=== PATIENT | male | born 1945 | race Caucasian/White ===

== ENCOUNTER 2016-08-12 23:01 | Observation (INO) | payer OTHER, MEDICARE ==
[2016-08-12] MEDS ORDERED: HYDROmorphONE/DILAUDID 1 MG/ML SYR IVP ONE (23:22)
[2016-08-12] MEDS ORDERED: NS 1,000 ML IV ONE (23:22)
[2016-08-12 23:29] LABS: COLOR YELLOW; LEUKOCYTE ESTERASE,URINE NEGATIVE (NEGATIVE); NITRITE,URINE NEGATIVE (NEGATIVE)
[2016-08-12] MEDS ORDERED: IOPAMIDOL (ISOVUE-300) 100 ML BTL ONE (23:29)
[2016-08-12 23:34] LABS: MUCUS TRACE /lpf (NONE-1+)
[2016-08-12 23:34] LABS: % IMMATURE GRANULYOCYTES 0.6 % (0.0-1.1); ABSOLUTE IMMATURE GRANULOCYTES 0.08 10^3/uL (0.00-0.10); ADD DIFF? NO; ADD MORPH? NO; ADD SCAN? NO; ATYPICAL LYMPHOCYTE FLAG 0 (0-99); FRAGMENT RBC FLAG 0 (0-99); HEMATOCRIT 49.7 % (40.0-51.0); HEMOGLOBIN 17.6 g/dL (13.7-17.5); LEFT SHIFT FLG 0 (0-99); LIPEMIA HEMOLYSIS FLAG 90 (0-99); MEAN CELL HEMOGLOBIN 32.1 pg (27.9-34.1); MEAN CELL HEMOGLOBIN CONCENTR. 35.4 g/dL (32.4-36.7); MEAN CELL VOLUME 90.7 fL (81.5-99.8); MEAN PLATELET VOLUME 10.4 fL (8.7-11.7); PLATELET CLUMPS FLAG 0 (0-99); PLATELET COUNT 165 10^3/uL (150-400); RED BLOOD CELL COUNT 5.48 10^6/uL (4.40-6.38); RED CELL DISTRIBUTION WIDTH 12.2 % (11.5-15.2)
[2016-08-13] MEDS ORDERED: ERTAPENEM 1 GM in NS 100 ML IV ONE (00:03)
[2016-08-13 00:07] LABS: ALANINE AMINOTRANSFERASE 49 IU/L (21-72); ALBUMIN 4.3 g/dL (3.5-5.0); ALKALINE PHOSPHATASE 76 IU/L (38-126); ANION GAP 12 mEq/L (8-16); ASPARTATE AMINOTRANSFERASE 41 IU/L (17-59); BILIRUBIN,TOTAL 1.2 mg/dL (0.1-1.4); BILIRUBIN-CONJUGATED 0.5 mg/dL (0.0-0.5); BILIRUBIN-UNCONJUGATED 0.7 mg/dL (0.0-1.1); CALCIUM 9.7 mg/dL (8.5-10.4); CARBON DIOXIDE 19 mEq/l (22-31); CHLORIDE 108 mEq/L (97-110); CREATININE 0.6 mg/dL (0.7-1.3); GLOMERULAR FILTRATION RATE > 60; GLUCOSE 124 mg/dL (70-100); POTASSIUM 4.7 mEq/L (3.5-5.2); SODIUM 139 mEq/L (134-144); TOTAL PROTEIN 7.6 g/dL (6.3-8.2)
--- NOTE | 2016-08-13 00:12 | EDPHY ---
H & P Stated Complaint: RLQ abd pain Time Seen by Provider: 08/12/16 23:13 HPI/ROS: Chief complaint: Right lower quadrant abdominal pain History of present illness: 71-year-old male presents to the emergency department for right lower quadrant abdominal pain. Patient reports the onset of symptoms over the last 3 days. They have been persistent. He denies precipitating factors. He denies alleviating factors. He denies other associated signs or symptoms including no fevers, no nausea, vomiting or diarrhea, no urinary symptoms. He has never had similar. Review of systems: A 10 point review of systems was obtained and other than described above was negative - Personal History Current Tetanus/Diphtheria Vaccine: Unsure Current Tetanus Diphtheria and Acellular Pertussis (TDAP): Unsure Tetanus Vaccine Date: unsure - Medical/Surgical History Hx Asthma: Yes Hx Chronic Respiratory Disease: No Hx Diabetes: No Hx Cardiac Disease: No Hx Renal Disease: No Hx Cirrhosis: No Hx Alcoholism: No Hx HIV/AIDS: No Hx Splenectomy or Spleen Trauma: No Other PMH: Septal repair. eye surgeries. Asthma, inguinal hernia repair, - Social History Smoking Status: Never smoked - Physical Exam Exam: General Appearance: Alert, nontoxic. Eyes: Pupils equal and round no pallor or injection. ENT, Mouth: Mucous membranes moist. Respiratory: There are no retractions, lungs are clear to auscultation. Cardiovascular: Regular rate and rhythm. Gastrointestinal: Bowel sounds are normal. Abdomen is soft and nondistended. There is tenderness in the right lower quadrant including at McBurney's point. Neurological: Alert and oriented x4. Strength and sensation intact and symmetrical. Skin: Warm and dry, no rashes. Musculoskeletal: Neck is supple non tender. Extremities are symmetrical, full range of motion. Psychiatric: Patient is oriented X 3, there is no agitation. Constitutional: Initial Vital Signs Temperature (C) 36.5 C 08/12/16 23:06 Heart Rate 78 08/12/16 23:06 Respiratory Rate 16 08/12/16 23:06 O2 Sat (%) 94 08/12/16 23:06 O2 Delivery Mode Room Air Allergies/Adverse Reactions: No Known Allergies Allergy (Verified 08/12/16 23:04) Home Medications: Medication Instructions Recorded Albuterol [Albuterol Neb deyvial] 2.5 mg IH QID #25 deyvial 10/11/10 Aspirin 81mg 10/11/10 Lisinopril 10/11/10 Pepcid 20 MG (OTC) 03/10/15 Singulair 03/10/15 Xalatan 0.005% (RX) 03/10/15 Simbrinza 1%-0.2% Eye Drops 08/12/16 Medical Decision Making ED Course/Re-evaluation: Patient seen under the supervision of my secondary supervising physician Dr. Guerra. Patient presents to the emergency department for abdominal pain. Ultimately he appears to have an appendicitis. He is started on Invanz. On- call surgery, Dr.Kyle Lima is consulted and will admit this patient for further evaluation and care. The plan has been discussed with the patient who voiced understanding and agreement with it. Differential Diagnosis: Included but not limited to appendicitis, colitis, diverticulitis, urinary tract disease - Data Points Laboratory Results: Laboratory Results 08/12/16 23:25 08/12/16 08/12/16 08/12/16 23:32 23:25 23:25 WBC 13.42 10^3/uL H 10^3/uL (3.80-9.50) RBC 5.48 10^6/uL 10^6/uL (4.40-6.38) Hgb 17.6 g/dL H g/dL (13.7-17.5) POC Hgb 17.7 gm/dL H gm/dL (14.5-17.3) Hct 49.7 % % (40.0-51.0) POC Hct 52 % H % (42.8-50.6) MCV 90.7 fL fL (81.5-99.8) MCH 32.1 pg pg (27.9-34.1) MCHC 35.4 g/dL g/dL (32.4-36.7) RDW 12.2 % % (11.5-15.2) Plt Count 165 10^3/uL 10^3/uL (150-400) MPV 10.4 fL fL (8.7-11.7) Neut % (Auto) 72.0 % % (39.3-74.2) Lymph % (Auto) 18.1 % % (15.0-45.0) [place] % (Auto) 7.9 % % (4.5-13.0) Eos % (Auto) 0.7 % % (0.6-7.6) Baso % (Auto) 0.7 % % (0.3-1.7) Nucleat RBC Rel Count 0.0 % % (0.0-0.2) Absolute Neuts (auto) 9.67 10^3/uL H 10^3/uL (1.70-6.50) Absolute Lymphs (auto) 2.43 10^3/uL 10^3/uL (1.00-3.00) Absolute Monos (auto) 1.06 10^3/uL H 10^3/uL (0.30-0.80) Absolute Eos (auto) 0.09 10^3/uL 10^3/uL (0.03-0.40) Absolute Basos (auto) 0.09 10^3/uL 10^3/uL (0.02-0.10) Absolute Nucleated RBC 0.00 10^3/uL 10^3/uL (0-0.01) Immature Gran % 0.6 % % (0.0-1.1) Immature Gran # 0.08 10^3/uL 10^3/uL (0.00-0.10) POC Sodium 140 mEq/L mEq/L (134-144) Sodium Pending POC Potassium 4.2 mEq/L mEq/L (3.3-5.0) Potassium Pending POC Chloride 106 mEq/L mEq/L (96-108) Chloride Pending Carbon Dioxide Pending Anion Gap Pending POC BUN 22 mg/dL mg/dL (7-23) BUN Pending Creatinine Pending POC Creatinine 0.6 mg/dL L mg/dL (0.8-1.5) Estimated GFR Pending Glucose Pending POC Glucose 127 mg/dL H mg/dL (70-100) Calcium Pending Total Bilirubin Pending Conjugated Bilirubin Pending Unconjugated Bilirubin Pending AST Pending ALT Pending Alkaline Phosphatase Pending Total Protein Pending Albumin Pending Lipase Pending Urine Color Urine Appearance Urine pH Ur Specific [place] Urine Protein Urine Ketones Urine Blood Urine Nitrate Urine Bilirubin Urine Urobilinogen Ur Leukocyte Esterase Urine RBC Urine WBC Ur Epithelial Cells Urine Mucus Urine Glucose 08/12/16 23:10 WBC RBC Hgb POC Hgb Hct POC Hct MCV MCH MCHC RDW Plt Count MPV Neut % (Auto) Lymph % (Auto) [place] % (Auto) Eos % (Auto) Baso % (Auto) Nucleat RBC Rel Count Absolute Neuts (auto) Absolute Lymphs (auto) Absolute Monos (auto) Absolute Eos (auto) Absolute Basos (auto) Absolute Nucleated RBC Immature Gran % Immature Gran # POC Sodium Sodium POC Potassium Potassium POC Chloride Chloride Carbon Dioxide Anion Gap POC BUN BUN Creatinine POC Creatinine Estimated GFR Glucose POC Glucose Calcium Total Bilirubin Conjugated Bilirubin Unconjugated Bilirubin AST ALT Alkaline Phosphatase Total Protein Albumin Lipase Urine Color YELLOW Urine Appearance CLEAR Urine pH 5.0 (5.0-7.5) Ur Specific [place] 1.023 (1.002-1.030) Urine Protein NEGATIVE (NEGATIVE) Urine Ketones NEGATIVE (NEGATIVE) Urine Blood 1+ H (NEGATIVE) Urine Nitrate NEGATIVE (NEGATIVE) Urine Bilirubin NEGATIVE (NEGATIVE) Urine Urobilinogen NEGATIVE EU EU (0.2-1.0) Ur Leukocyte Esterase NEGATIVE (NEGATIVE) Urine RBC 5-10 /hpf H /hpf (0-3) Urine WBC 1-3 /hpf /hpf (0-3) Ur Epithelial Cells NONE SEEN /lpf /lpf (NONE-1+) Urine Mucus TRACE /lpf /lpf (NONE-1+) Urine Glucose NEGATIVE (NEGATIVE) Medications Given: Discontinued Medications Hydromorphone HCl (Dilaudid) 1 mg IVP EDNOW ONE Stop: 08/12/16 23:23 Last Admin: 08/12/16 23:35 Dose: 1 mg Sodium Chloride (Ns) 1,000 mls @ 0 mls/hr IV ONCE ONE PRN Reason: Wide Open Stop: 08/12/16 23:23 Last Admin: 08/12/16 23:35 Dose: 1,000 mls Point of Care Test Results: 08/12/16 23:32 POC Sodium 140 POC Potassium 4.2 POC Chloride 106 POC BUN 22 POC Creatinine 0.6 L POC Glucose 127 H Departure - Departure Disposition: [facility] Inpatient Acute Clinical Impression: Acute appendicitis Qualifiers: Acute appendicitis type: unspecified acute appendicitis type Qualified Code(s) : K35.80 - Unspecified acute appendicitis Condition: Good Referrals: Al Krishna MD [Primary Care Provider] - As per Instructions
[2016-08-13] MEDS ORDERED: BUPIVACAINE/EPI 0.25% 30 ML SDV ONE (00:42)
[2016-08-13] MEDS ORDERED: fentaNYL 100 MCG/2 ML INJ ONE (00:46)
[2016-08-13] MEDS ORDERED: PROPOFOL 200 MG/20 ML VIAL ONE (00:46)
[2016-08-13] MEDS ORDERED: ROCURONIUM 100 MG/10 ML VIAL ONE (00:48)
[2016-08-13] MEDS ORDERED: MIDAZOLAM 2 MG/2 ML VIAL ONE (01:02)
--- NOTE | 2016-08-13 01:08 | GHP ---
[f rep st] PREOP HISTORY AND PHYSICAL DATE OF ADMISSION: 08/13/2016 CHIEF COMPLAINT: Abdominal pain. HISTORY OF PRESENT ILLNESS: This is an otherwise healthy 71-year-old male, who presents to the [facility] department with an approximate 48 hour history of worsening abdominal pain. He states that th e pain never really has been that bad. It has been sort of this nagging, vague abdominal pain which has sort of relocated to his right lower quadrant. It persisted and worsened today which prompted his presentation here at the behest of his son who is also a physician. He denies having any nausea or vomiting. He states that the pain is a vague right lower quadrant pain, 6/10 at worse intensity without radiation. He denies having any fevers or chills. PAST MEDICAL HISTORY: Significant for nausea and hyperlipidemia. PAST SURGICAL HISTORY: Right inguinal hernia repair performed open about 50 years ago. ALLERGIES: None. CURRENT MEDICATIONS: Include an inhaler and a baby aspirin and some fish oil. PHYSICAL EXAM: VITAL SIGNS: Temperature 36.5, blood pressure 135/66. His heart rate is 78 and he is 94% on room air. GENERAL: He is alert and oriented, in no acute distress. CV: He has a regula r rate and rhythm without any murmurs. LUNGS: Clear to auscultation bilaterally. ABDOMEN: Rotund . Well-healed right lower quadrant scar consistent with previous inguinal hernia repair, no other s car. He is moderately tender to palpation in the right lower quadrant. LABORATORY DATA: Leukocytosis to 13,000 with left shift. Chemistries are unremarkable. CT scan shows a dilated, fluid-filled appendix with stranding and an associated appendicolith in the right lower quadrant consistent with nonperforated appendicitis. ASSESSMENT AND PLAN: 71-year-old male with acute appendicitis. I discussed the risks, benefits, and alternatives to operating, and the patient wishes to proceed. We will plan to keep him n.p.o. IV antibiotics and plan for operation as time permits. /[id number]/MODL
[2016-08-13] MEDS ORDERED: SUGAMMADEX SODIUM 200 MG/2 ML VIAL IVP ONE (01:49)
[2016-08-13] MEDS ORDERED: ONDANSETRON 4 MG/2 ML VIAL ONE (01:49)
[2016-08-13] MEDS ORDERED: RANITIDINE 50 MG/2 ML VIAL ONE (01:49)
[2016-08-13] MEDS ORDERED: DEXAMETHASONE 4 MG/ML VIAL ONE (01:49)
[2016-08-13] MEDS ORDERED: KETOROLAC 30 MG/1 ML SDV ONE (01:50)
[2016-08-13] MEDS ORDERED: HYDROmorphONE/DILAUDID 1 MG/ML SYR IVP PRN (02:04)
[2016-08-13] MEDS ORDERED: HYDROCODONE/APAP 5/325 TAB PO PRN (02:04)
[2016-08-13] MEDS ORDERED: ONDANSETRON 4 MG/2 ML VIAL IVP PRN (02:04)
--- NOTE | 2016-08-13 02:08 | POSTOPPROG ---
Post Op Note Date of Operation: 08/13/16 Surgeon: Bernard Lima Anesthesiologist: Deb Anesthesia: GET(General Endotracheal) Pre-op Diagnosis: appendicitis Post-op Diagnosis: same Procedure: lap appy Findings: acute, non perforated Inf/Abcess present in the surg proc area at time of surgery?: No Depth: Superfical (Skin SQ) EBL: Minimal Specimen(s): appendix
[2016-08-13] MEDS ORDERED: D5W 1/2 NS W/ 20 KCl/L 1,000 ML IV SCH (02:15)
--- NOTE | 2016-08-13 03:42 | GOP ---
[f rep st] OPERATIVE REPORT DATE OF OPERATION: 08/13/2016 SURGEON: Bernard Lima MD LINING CASER: None. ANESTHESIA: General endotracheal. ANESTHESIOLOGIST: Dr. Boyd. PREOPERATIVE DIAGNOSIS: Appendicitis. POSTOPERATIVE DIAGNOSIS: Appendicitis. PROCEDURE PERFORMED: Laparoscopic appendectomy. FINDINGS: Acute, indurated, nonperforated appendicitis. SPECIMENS: Appendix. ESTIMATED BLOOD LOSS: 5 cc. DESCRIPTION OF PROCEDURE: The patient was greeted in the preoperative suite. Once again, risks, be nefits, and alternatives were discussed and consent was signed. He was then brought back to the ope rative suite, placed on the OR table in a supine position. After all anesthesia machines, including SCDs, were on and functioning, World Health Organization time-out was performed. General endotrach eal anesthesia was then induced without incident. Antibiotics were given on-call to the operating r oom. His abdomen was then widely prepped and draped in typical sterile fashion. I entered the abdo men via an inferior umbilical vertical incision through which I inserted the Veress needle and insuf flated to 15 mmHg. Once this was done, I inserted a 12 mm Visiport through that site. I inspected the organs. I placed 2 additional 5 mm ports, one in the left lower, one in the right upper quadran t, both under direct visualization. Once this was done, I identified the appendix which was retroce yelena in nature by tracing the taeniae inferiorly. I did have to mobilize the distal portion of the c ecum to properly identify it. After I identified it, I used the Harmonic Scalpel to successfully ta ke the indurated mesoappendix all the way to the base of the cecum, and then I amputated the appendi x at its base using a single fire Endo-DEBRA blue load. The specimen was then removed in an EndoCatch bag. The right lower quadrant was inspected and noted to be hemostatic and the staple line clean, dry, and intact. He was irrigated with warm normal saline. Local anesthesia was then instilled in all port sites. My umbilical site was then closed with a Cortes-Jose Ramon fascial closure device, no ting excellent fascial reapproximation at the umbilical site. I then desufflated the abdomen and cl osed the skin with running 4-0 Monocryl, over which Dermabond was placed. The patient tolerated the procedure well, was extubated in the operative suite, and taken to the PACU in satisfactory conditi on. COUNTS: All counts were reported as correct x2. /[id number]/MODL
--- NOTE | 2016-08-13 07:51 | SOAPPROG ---
SOAP Progress Note Assessment/Plan: Assessment/Plan: - POD#1 s/p lappy, non perforated - Doing well, pain is controlled. Will ADAT, try PO narcotics and plan for dc later today. Precautions discussed. Fu with me in 10-14 days 08/13/16 07:50 Subjective: Feels great Objective: Vital Signs Temp Pulse Resp BP Pulse Ox 36.5 C 70 18 122/57 H 96 08/13/16 04:20 08/13/16 04:20 08/13/16 04:20 08/13/16 04:20 08/13/16 04:20 08/12/16 08/13/16 08/14/16 05:59 05:59 05:59 Intake Total 2600 Output Total 510 Balance 2090 ICD10 Worksheet Patient Problems: Problems Problem Status Onset Acute appendicitis Acute
[2016-08-13 07:58] VITALS: BP 110/67; PULSE 64; RESP 16; TEMP 97.6; O2SAT 95
== END 2016-08-13 12:49 | disposition home or self-care (01) ==
LOC: INTOOBSV 08-13 00:09 → F2W 08-13 02:47
PROVIDERS: ADMIT Surgery; ATTEND Surgery
PROC: 0DTJ4ZZ Resection of Appendix, Percutaneous Endoscopic Approach (ICD-10-PCS; principal; 2016-08-13 00:09)
DX: K35.80 Unspecified acute appendicitis (principal); J45.909 Unspecified asthma, uncomplicated; Z79.51 Long term (current) use of inhaled steroids
CPT/HCPCS: 44970; 74177; 88304; G0378; J1100; J1170; J1335; J1885; J2250; J2405; J2704; J3010; Q9967; 82947-QW; 96365; J2780

== ENCOUNTER 2016-12-14 21:34 | Emergency (ER) | payer OTHER, MEDICARE ==
[2016-12-14 21:41] VITALS: TEMP 97.9
--- NOTE | 2016-12-14 21:56 | CPEKG ---
Heart Rate: 99 RR Interval: 606 P-R Interval: 208 QRSD Interval: 96 QT Interval: 324 QTC Interval: 416 P [place]: 65 QRS [place]: 49 T Wave [place]: 96 EKG Severity - ABNORMAL ECG - EKG Impression: SINUS RHYTHM EKG Impression: VENTRICULAR BIGEMINY EKG Impression: ABNRM R PROG, CONSIDER ASMI OR LEAD PLACEMENT Electronically Signed By: Sanchez Luna 14-Dec-2016 23:03:41
[2016-12-14 22:02] LABS: % IMMATURE GRANULYOCYTES 0.4 % (0.0-1.1); ABSOLUTE IMMATURE GRANULOCYTES 0.04 10^3/uL (0.00-0.10); ADD DIFF? NO; ADD MORPH? NO; ADD SCAN? NO; ATYPICAL LYMPHOCYTE FLAG 10 (0-99); FRAGMENT RBC FLAG 0 (0-99); HEMATOCRIT 46.8 % (40.0-51.0); HEMOGLOBIN 16.2 g/dL (13.7-17.5); LEFT SHIFT FLG 0 (0-99); LIPEMIA HEMOLYSIS FLAG 90 (0-99); MEAN CELL HEMOGLOBIN 32.2 pg (27.9-34.1); MEAN CELL HEMOGLOBIN CONCENTR. 34.6 g/dL (32.4-36.7); MEAN PLATELET VOLUME 10.6 fL (8.7-11.7); PLATELET CLUMPS FLAG 50 (0-99); PLATELET COUNT 158 10^3/uL (150-400); RED BLOOD CELL COUNT 5.03 10^6/uL (4.40-6.38); RED CELL DISTRIBUTION WIDTH 12.3 % (11.5-15.2)
--- NOTE | 2016-12-14 22:24 | EDPHY ---
H & P Stated Complaint: bradycardia, son thinks r/o Mobitz II block Time Seen by Provider: 12/14/16 21:51 HPI/ROS: Chief Complaint: Bradycardia HPI: 71-year-old male with a history of hypertension, glaucoma, sleep apnea is presenting with bradycardia. Patient's states that his son checked his heart rate earlier and it was 38. Patient had a physical exam a week ago was noted to be bradycardic at 48 but otherwise was normal. Patient states that he actually feels in his normal state health. He is walking 2 miles a day which has not changed in the last several months. He is feeling increasingly tired the end has been sleeping 11 hours a night attributes this to his sleep apnea. This is not new for him either. Has not had any chest pain or shortness of breath. He has not had any swelling. No fevers or chills. No cough. No changes to his medications. He is not on any medications that would a slow his heart rate. Right now states he feels normal. ROS: 10 point Review of Systems is negative except as noted in the HPI. PMH: Glaucoma, hypertension, the asthma Medications: Lisinopril, Singulair, aspirin, Pepcid Allergies: No known drug allergies Social History: No smoking, no alcohol, no recreational drug use Family History: non-contributory Physical Exam: Gen: Awake, Alert, No Distress HEENT: Nose: no rhinorrhea Eyes: PERRLA, EOMI Mouth: Moist mucosa Neck: Supple, no JVD Chest: nontender, lungs clear to auscultation Heart: S1, S2 normal, no murmur Abd: Soft, non-tender, no guarding Back: no CVA tenderness, no midline tenderness Ext: no edema, non-tender Skin: no rash Neuro: CN II-XII intact, Sensation grossly intact, Strength 5/5 in bilateral upper and lower extremities - Personal History Current Tetanus/Diphtheria Vaccine: Yes Tetanus Vaccine Date: unsure - Medical/Surgical History Hx Asthma: Yes Hx Chronic Respiratory Disease: No Hx Diabetes: No Hx Cardiac Disease: No Hx Renal Disease: No Hx Cirrhosis: No Hx Alcoholism: No Hx HIV/AIDS: No Hx Splenectomy or Spleen Trauma: No Other PMH: PSHx: nasal septal repair, eye surgeries, inguinal hernia repair. PMHx: asthma, sleep apnea, glaucoma, htn - Social History Smoking Status: Never smoked Constitutional: Initial Vital Signs Temperature (C) 36.6 C 12/14/16 21:37 Heart Rate 39 L 12/14/16 21:37 Respiratory Rate 16 12/14/16 21:37 Blood Pressure 150/47 H 12/14/16 21:37 O2 Sat (%) 93 12/14/16 21:37 O2 Delivery Mode Room Air O2 (L/minute) 2 Allergies/Adverse Reactions: No Known Allergies Allergy (Verified 08/12/16 23:04) Home Medications: Medication Instructions Recorded Albuterol [Proventil Neb] 3 ml IH QID PRN 08/13/16 Aspirin [Aspirin 81mg (*)] 81 mg PO HS 08/13/16 Brinzolamide/Brimonidine Tart 1 drop EACHEYE BID 08/13/16 [Simbrinza 1%-0.2% Eye Drops] Famotidine [Pepcid 20 MG (*)] 20 mg PO HS 08/13/16 Latanoprost 0.005% [Xalatan 0.005% 1 drops EACHEYE HS 08/13/16 (*)] Lisinopril [Zestril 20 mg (*)] 20 mg PO DAILY 08/13/16 Montelukast Sodium [Singulair 10 10 mg PO DAILY 08/13/16 mg (*)] Medical Decision Making - Diagnostics EKG Interpretation: ECG time 9:47 p.m. sinus rhythm with ventricular bigeminy. No acute ST or T- wave changes. Mild prolonged p.r.. Imaging Results: Imaging Impressions Chest X-Ray 12/14/16 21:52 Impression: Negative frontal chest radiograph. ED Course/Re-evaluation: 71-year-old male who actually feels normal with son noticed that his heart rate was low. Patient is in bigeminy with a rate of 70s. His labs are entirely normal. Chest x-ray is normal. He is currently without complaint or symptom. Given his lack of symptoms. He is ambulating without any difficulty. He has not had any syncope or presyncopal type of symptoms. I have talked at length with he and his son who is also a physician. They are comfortable with plan of discharge to home with outpatient follow-up with Cardiology. He will certainly return immediately for worsening symptoms such as chest pain, fainting, lightheadedness, or any other concerns. Given the fact that the patient went for a 2 mi walk today and a 2 mi walk yesterday I am comfortable sending him home with outpatient follow-up. - Data Points Laboratory Results: Laboratory Results 12/14/16 21:51 12/14/16 21:51 12/14/16 12/14/16 21:51 21:51 WBC 10.00 10^3/uL H 10^3/uL (3.80-9.50) RBC 5.03 10^6/uL 10^6/uL (4.40-6.38) Hgb 16.2 g/dL g/dL (13.7-17.5) Hct 46.8 % % (40.0-51.0) MCV 93.0 fL fL (81.5-99.8) MCH 32.2 pg pg (27.9-34.1) MCHC 34.6 g/dL g/dL (32.4-36.7) RDW 12.3 % % (11.5-15.2) Plt Count 158 10^3/uL 10^3/uL (150-400) MPV 10.6 fL fL (8.7-11.7) Neut % (Auto) 46.1 % % (39.3-74.2) Lymph % (Auto) 38.5 % % (15.0-45.0) [place] % (Auto) 12.2 % % (4.5-13.0) Eos % (Auto) 2.1 % % (0.6-7.6) Baso % (Auto) 0.7 % % (0.3-1.7) Nucleat RBC Rel Count 0.0 % % (0.0-0.2) Absolute Neuts (auto) 4.61 10^3/uL 10^3/uL (1.70-6.50) Absolute Lymphs (auto) 3.85 10^3/uL H 10^3/uL (1.00-3.00) Absolute Monos (auto) 1.22 10^3/uL H 10^3/uL (0.30-0.80) Absolute Eos (auto) 0.21 10^3/uL 10^3/uL (0.03-0.40) Absolute Basos (auto) 0.07 10^3/uL 10^3/uL (0.02-0.10) Absolute Nucleated RBC 0.00 10^3/uL 10^3/uL (0-0.01) Immature Gran % 0.4 % % (0.0-1.1) Immature Gran # 0.04 10^3/uL 10^3/uL (0.00-0.10) Sodium 138 mEq/L mEq/L (134-144) Potassium 4.3 mEq/L mEq/L (3.5-5.2) Chloride 106 mEq/L mEq/L (97-110) Carbon Dioxide 20 mEq/l L mEq/l (22-31) Anion Gap 12 mEq/L mEq/L (8-16) BUN 24 mg/dL H mg/dL (7-23) Creatinine 0.8 mg/dL mg/dL (0.7-1.3) Estimated GFR > 60 Glucose 105 mg/dL H mg/dL (70-100) Calcium 9.9 mg/dL mg/dL (8.5-10.4) Magnesium 1.8 mg/dL mg/dL (1.6-2.3) Troponin I < 0.012 ng/mL ng/mL (0.000-0.034) Departure - Departure Disposition: Home, Routine, Self-Care Clinical Impression: Ventricular bigeminy Condition: Good Instructions: Premature Ventricular Contractions (ED) Additional Instructions: Follow up with Cardiology, call tomorrow for next available appointment. Return to the emergency department for lightheadedness, worsening fatigue, falls , chest pain, shortness of breath, or any other concerns. Referrals: Al Krishna MD [Primary Care Provider] - As per Instructions Tony Luong MD [Medical Doctor] - As per Instructions
[2016-12-14 22:29] LABS: ANION GAP 12 mEq/L (8-16); CALCIUM 9.9 mg/dL (8.5-10.4); CARBON DIOXIDE 20 mEq/l (22-31); CHLORIDE 106 mEq/L (97-110); CREATININE 0.8 mg/dL (0.7-1.3); GLOMERULAR FILTRATION RATE > 60; GLUCOSE 105 mg/dL (70-100); POTASSIUM 4.3 mEq/L (3.5-5.2); SODIUM 138 mEq/L (134-144)
[2016-12-14 22:44] LABS: MAGNESIUM 1.8 mg/dL (1.6-2.3)
[2016-12-14 22:55] LABS: TROPONIN I < 0.012 ng/mL (0.000-0.034)
[2016-12-14 23:57] VITALS: BP 117/71; PULSE 60; RESP 18; O2SAT 97
== END 2016-12-14 23:56 | disposition home or self-care (01) ==
DX: I49.3 Ventricular premature depolarization (principal); I10 Essential (primary) hypertension; J45.909 Unspecified asthma, uncomplicated; Z79.82 Long term (current) use of aspirin

== ENCOUNTER → 2016-12-17 | Outpatient (CLI) | payer OTHER, MEDICARE | LOC: BHFA 10:45 | PROVIDERS: ATTEND Internal Medicine Cardiovascular Disease | DX: I49.3 Ventricular premature depolarization (principal); R00.1 Bradycardia, unspecified; R00.2 Palpitations; R06.00 Dyspnea, unspecified; R42 Dizziness and giddiness ==

== ENCOUNTER → 2016-12-23 | Outpatient (CLI) | payer OTHER, MEDICARE ==
[~2016-12-23] MED LIST: REGADENOSON 0.4 MG/5 ML SYR IVP ONE
--- NOTE | 2016-12-23 15:06 | CPR ---
[f rep st] NONINVASIVE CARDIAC PROCEDURE REPORT PROCEDURE: Nuclear stress test. DIAGNOSES: Shortness of breath. Premature ventricular contractions. The patient is in excellent state of mind and alert. I went over with him the risks of the stress te st, and he wanted to proceed. He is not an active walker by any means and takes very short steps. He is deconditioned and is 70 po unds overweight. He was, however, wanting to try an exercise stress test, so we proceeded. PROTOCOL: The patient could not go at the rate of stage I of the standard Enrique protocol. At the mo dified Enrique protocol, he could not keep up. So, within 30 seconds of starting the treadmill, he laura t to a manual performance. He was walking at 1.5 miles per hour, and we increased the grade, but we could not increase the speed of the treadmill because he could not tolerate that. He walked for over 5-1/2 minutes. He had no chest pain. He had no PVCs with exercise. He had PVCs and bigeminy after exercise. He had asymptomatic nonsustained ventricular tachycardia with one 4-ritchie t run of ventricular tachycardia. He had multiple triplets. Again, he had no symptoms at the time o f these arrhythmias, which occurred only in the postexercise time. What we did for a protocol of exercise was, as he could tolerate it, we increased the grade, but, as mentioned above, we kept him at a very slow pace. It was hard to keep him towards the front of the t readmill, and he had significant dyspnea with not too much exertion, but he wanted to keep going. He had no chest pain with exercise, no lightheadedness, no neurologic symptoms. He just had dyspnea. We increased the grade until we were up at 17%, and he reached 85% of maximum predicted heart rate. As soon as he had his injection, within 20 seconds we decreased the grade, to make it more comfortabl e for him, down to 7%. We then took away the grade and slowed the treadmill down to 1 mile an hour, all in the first 2 minutes post injection. We then had him walk on a flat level treadmill at 0.7 mil es an hour for 2 more minutes to cool down. His breathing became much better. He had the nonsustain ed ventricular tachycardia and the resumption of PVCs. We then stopped the treadmill, and he sat nishi n at the end of the treadmill on a stool, and we engaged in conversation for the next 5-7 minutes, wa tching for any more significant arrhythmias, and we did not see any. He tolerated this procedure daquan y well. His EKG at baseline was abnormal, with an intraventricular conduction delay, nonspecific ST- T changes, and many PVCs. He had no diagnostic EKG changes with exercise. The [place]mel Treadmill Score does not apply with such a manual exercise program. CONCLUSIONS: 1. Very poor exercise tolerance. 2. Massive obesity. 3. Significant dyspnea with very little exertion. 4. There is no EKG or clinical evidence of ischemia in the form of chest pain with maximal exercise capacity. 5. Nuclear images pending. 6. There was no chest pain, lightheadedness, palpitations with his exercise test. All his questions have been answered. We have come up with a terrific exercise program for him, and I think he will do a great job and will adhere to doing that. I think he is very motivated. /[id number]/MODL
== END ==
LOC: FIMAGING 12:29
PROVIDERS: ATTEND Internal Medicine Cardiovascular Disease
PROC: C22G1ZZ Tomographic (Tomo) Nuclear Medicine Imaging of Myocardium using Technetium 99m (Tc-99m) (ICD-10-PCS; principal; 2016-12-23)
DX: I10 Essential (primary) hypertension (principal)
CPT/HCPCS: 78452; A9500; J2785

== ENCOUNTER 2016-12-29 09:42 | Day surgery (SDC) | payer OTHER, MEDICARE ==
[2016-12-29] MEDS ORDERED: diphenhydrAMINE 25 MG CAP PO ONE ×2 (09:47→10:12)
[2016-12-29] MEDS ORDERED: ASPIRIN EC 325 MG TAB PO ONE ×2 (09:47→10:12)
[2016-12-29] MEDS ORDERED: FAMOTIDINE 20 MG TAB PO ONE (09:47)
[2016-12-29] MEDS ORDERED: DIAZEPAM 5 MG TAB PO ONE (09:47)
[2016-12-29] MEDS ORDERED: NS 1,000 ML IV ONE (09:47)
[2016-12-29] MEDS ORDERED: DIAZEPAM 5 MG TAB ONE (10:12)
[2016-12-29] MEDS ORDERED: FAMOTIDINE 20 MG TAB ONE (10:12)
--- NOTE | 2016-12-29 10:15 | CPEKG ---
Heart Rate: 89 RR Interval: 674 P-R Interval: 236 QRSD Interval: 92 QT Interval: 261 QTC Interval: 318 P [place]: 66 QRS [place]: 48 T Wave [place]: 217 EKG Severity - ABNORMAL ECG - EKG Impression: SINUS RHYTHM EKG Impression: VENTRICULAR BIGEMINY EKG Impression: FIRST DEGREE AV BLOCK Electronically Signed By: Lm Ortiz 29-Dec-2016 10:35:52
[2016-12-29 10:32] LABS: % IMMATURE GRANULYOCYTES 0.3 % (0.0-1.1); ABSOLUTE IMMATURE GRANULOCYTES 0.02 10^3/uL (0.00-0.10); ADD DIFF? NO; ADD MORPH? NO; ADD SCAN? NO; ATYPICAL LYMPHOCYTE FLAG 0 (0-99); FRAGMENT RBC FLAG 0 (0-99); HEMATOCRIT 45.5 % (40.0-51.0); HEMOGLOBIN 15.6 g/dL (13.7-17.5); LEFT SHIFT FLG 0 (0-99); LIPEMIA HEMOLYSIS FLAG 90 (0-99); MEAN CELL HEMOGLOBIN 32.2 pg (27.9-34.1); MEAN CELL HEMOGLOBIN CONCENTR. 34.3 g/dL (32.4-36.7); MEAN CELL VOLUME 93.8 fL (81.5-99.8); MEAN PLATELET VOLUME 10.7 fL (8.7-11.7); PLATELET CLUMPS FLAG 30 (0-99); PLATELET COUNT 149 10^3/uL (150-400); RED BLOOD CELL COUNT 4.85 10^6/uL (4.40-6.38); RED CELL DISTRIBUTION WIDTH 12.6 % (11.5-15.2)
[2016-12-29 10:42] LABS: INR 1.13 (0.83-1.16); PROTIME(PATIENT) 14.4 SEC (12.0-15.0)
[2016-12-29 10:58] LABS: ANION GAP 12 mEq/L (8-16); CALCIUM 9.5 mg/dL (8.5-10.4); CARBON DIOXIDE 18 mEq/l (22-31); CHLORIDE 109 mEq/L (97-110); CHOLESTEROL 124 mg/dL (140-220); CHOLESTEROL/HDL RATIO 4.96 RATIO (1.00-4.97); CREATININE 0.7 mg/dL (0.7-1.3); GLOMERULAR FILTRATION RATE > 60; GLUCOSE 93 mg/dL (70-100); HIGH DENSITY LIPOPROTEIN 25 mg/dL (40-65); LDL/HDL RATIO 2.96 RATIO (1.00-3.64); LOW DENSITY LIPOPROTEIN 74 mg/dL (80-100); MAGNESIUM 1.8 mg/dL (1.6-2.3); NON-HIGH DENSITY LIPOPROTEIN 99 mg/dL (90-129); POTASSIUM 4.3 mEq/L (3.5-5.2); SODIUM 139 mEq/L (134-144); TRIGLYCERIDE 129 mg/dL (40-150); VERY LOW DENSITY LIPOPROTEINS 25 mg/dL (8-25)
[2016-12-29] MEDS ORDERED: VERAPAMIL 5 MG/2 ML VIAL ONE (12:40)
[2016-12-29] MEDS ORDERED: MIDAZOLAM 2 MG/2 ML VIAL ONE (12:40)
[2016-12-29] MEDS ORDERED: fentaNYL 100 MCG/2 ML INJ ONE (12:40)
[2016-12-29] MEDS ORDERED: HEPARIN 10,000 UNIT/10 ML MDV ONE (12:40)
[2016-12-29] MEDS ORDERED: LIDOCAINE 1% 300 MG/30 ML SDV ONE (12:40)
[2016-12-29] MEDS ORDERED: IOPAMIDOL (ISOVUE-370) 150 ML BTL IV ONE (12:41)
--- NOTE | 2016-12-29 12:54 | PDHPUP ---
History & Physical Update H&P update statement: This history and physical update is based on an assessment of the patient which was completed after admission or registration (within 24 hours), but prior to the surgery/procedure. H&P update: H&P reviewed & patient examined, no change in patient's condition since H&P completed
--- NOTE | 2016-12-29 12:55 | PDPROPOC ---
Sedation Plan of Care Sedation Plan of Care: vital signs stable, mental status noted, patient educated of risks, benefits, alternatives, patient can tolerate sedation ASA Classification: ASA 1 Planned drugs: fentanyl, midazolam Mallampati Score: Class 3 Mallampati Reference Image: Patient passed 3-3-2 rule?: Yes
[2016-12-29] MEDS ORDERED: ATROPINE SULFATE 1 MG/10 ML SYR IVP PRN (14:01)
[2016-12-29] MEDS ORDERED: ONDANSETRON 4 MG/2 ML VIAL IVP PRN (14:01)
[2016-12-29] MEDS ORDERED: NITROGLYCERIN 0.4 MG BTL SL PRN (14:01)
[2016-12-29] MEDS ORDERED: HYDROCODONE/APAP 5/325 TAB PO PRN (14:01)
--- NOTE | 2016-12-29 14:12 | PDDXCAT ---
Diagnostic Cath Note - . Date: 12/29/16 Glove Cutter: Rodrick Indication: other (Declining exercise capacity and frequent PVCs/bigeminy.) - Procedure Access: right wrist Procedure: left heart catheterization, coronary angiography, left ventriculogram - Materials Left Heart Cath size: 5F Left Heart Cath materials: other (Sightseer and Pigtail) - Findings-Left Heart Catheterization LM: Normal. LAD: Trace athersclerotic irregularities. LCX: Trace athersclerotic irregularities. RCA: Trace athersclerotic irregularities. EDP: 22 mmHg LVEF: 55% Wall motion: Normal Estimated blood loss: <50ml Closure method: TR Band Assessment: 1) Normal LV systolic function. 2) Minimal coronary atherosclerotic irregulaities. Patient Problems: Problems Problem Status Onset Acute appendicitis Acute
== END 2016-12-29 17:36 | disposition home or self-care (01) ==
LOC: FCATH 09:42
PROVIDERS: ATTEND Internal Medicine Interventional Cardiology
DX: R55 Syncope and collapse (principal); R06.02 Shortness of breath; I49.3 Ventricular premature depolarization; I11.9 Hypertensive heart disease without heart failure
CPT/HCPCS: 93005; 93458; C1769; J1644; J2250; J3010; Q9967

== ENCOUNTER → 2017-02-11 | Outpatient (CLI) | payer OTHER, MEDICARE | LOC: BHFA 11:30 | PROVIDERS: ATTEND Internal Medicine Cardiovascular Disease | DX: I49.3 Ventricular premature depolarization (principal) ==

== ENCOUNTER 2017-03-15 10:41 | Observation (INO) | payer OTHER, MEDICARE ==
[2017-03-15] MEDS ORDERED: NS 1,000 ML IV ONE (10:57)
--- NOTE | 2017-03-15 11:11 | CPEKG ---
Heart Rate: 84 RR Interval: 714 P-R Interval: 228 QRSD Interval: 92 QT Interval: 408 QTC Interval: 483 P Hurt: 68 QRS Hurt: 19 T Wave Hurt: 64 EKG Severity - ABNORMAL ECG - EKG Impression: SINUS RHYTHM EKG Impression: VENTRICULAR BIGEMINY EKG Impression: FIRST DEGREE AV BLOCK Electronically Signed By: Gorge Anderson 15-Mar-2017 11:29:48
[2017-03-15] MEDS ORDERED: HEPARIN 10,000 UNIT/10 ML MDV ONE ×3 (11:30→15:28)
[2017-03-15] MEDS ORDERED: BUPIVACAINE 0.5% 30 ML SDV ONE (11:30)
[2017-03-15] MEDS ORDERED: LIDOCAINE 1% 300 MG/30 ML SDV ONE (11:30)
[2017-03-15] MEDS ORDERED: ISOPROTERENOL HCL/D5W 0.2 MG/50 ML BAG IV ONE (11:31)
--- NOTE | 2017-03-15 11:31 | PDGENHP ---
History & Physical Chief Complaint: SYMPTOMATIC PVC History of Present Illness: PVC Relevant Physical Exam: S1S2 REGULARLY IRREGULAR. CTA. AO3 Cardiorespiratory Assessment: SYMPTOMATIC PVC, PLANNED ABLATION
[2017-03-15 11:39] LABS: % IMMATURE GRANULYOCYTES 0.5 % (0.0-1.1); ABSOLUTE IMMATURE GRANULOCYTES 0.04 10^3/uL (0.00-0.10); ADD DIFF? NO; ADD MORPH? NO; ADD SCAN? NO; ATYPICAL LYMPHOCYTE FLAG 0 (0-99); FRAGMENT RBC FLAG 0 (0-99); HEMATOCRIT 46.2 % (40.0-51.0); HEMOGLOBIN 16.6 g/dL (13.7-17.5); LEFT SHIFT FLG 0 (0-99); LIPEMIA HEMOLYSIS FLAG 90 (0-99); MEAN CELL HEMOGLOBIN CONCENTR. 35.9 g/dL (32.4-36.7); MEAN CELL VOLUME 89.2 fL (81.5-99.8); MEAN PLATELET VOLUME 10.3 fL (8.7-11.7); PLATELET CLUMPS FLAG 10 (0-99); PLATELET COUNT 134 10^3/uL (150-400); RED BLOOD CELL COUNT 5.18 10^6/uL (4.40-6.38); RED CELL DISTRIBUTION WIDTH 12.9 % (11.5-15.2)
[2017-03-15 11:48] LABS: INR 1.11 (0.83-1.16); PROTIME(PATIENT) 14.5 SEC (12.0-15.0)
[2017-03-15 11:49] LABS: APTT 33.4 SEC (23.0-38.0)
[2017-03-15 11:58] LABS: ANION GAP 11 mEq/L (8-16); CALCIUM 9.2 mg/dL (8.5-10.4); CARBON DIOXIDE 20 mEq/l (22-31); CHLORIDE 112 mEq/L (97-110); CREATININE 0.7 mg/dL (0.7-1.3); GLOMERULAR FILTRATION RATE > 60; GLUCOSE 91 mg/dL (70-100); MAGNESIUM 1.9 mg/dL (1.6-2.3); POTASSIUM 4.2 mEq/L (3.5-5.2); SODIUM 143 mEq/L (134-144)
--- NOTE | 2017-03-15 12:27 | PDANEPAE ---
ANE Past Medical History - Cardiovascular History Hx Hypertension: Yes Hx Arrhythmias: Yes Hx Chest Pain: No Hx Coronary Artery / Peripheral Vascular Disease: No Hx CHF / Valvular Disease: No Hx Palpitations: Yes - Pulmonary History Hx COPD: No Hx Asthma/Reactive Airway Disease: Yes Hx Recent Upper Respiratory Infection: No Hx Oxygen in Use at Home: No Hx Sleep Apnea: Yes - Endocrine History Hx Diabetes: No - Chronic Pain History Chronic Pain: No ANE Review of Systems Review of Systems: - Exercise capacity Exercise capacity: >=4 METS ANE Patient History - Allergies Allergies/Adverse Reactions: No Known Allergies Allergy (Verified 08/12/16 23:04) - Home Medications Home Medications: Aspirin [Aspirin 81mg (*)] 81 mg PO HS 08/13/16 [Last Taken 12/28/16 20:00] Brinzolamide/Brimonidine Tart [Simbrinza 1%-0.2% Eye Drops] 1 drop EACHEYE BID 08/13/16 [Last Taken 12/29/16 08:00] Latanoprost 0.005% [Xalatan 0.005% (*)] 1 drops EACHEYE HS 08/13/16 [Last Taken 12/28/16 20:00] Montelukast Sodium [Singulair 10 mg (*)] 10 mg PO DAILY 08/13/16 [Last Taken 08:00] Lisinopril [Zestril 10 mg (*)] 10 mg PO DAILY 12/28/16 [Last Taken 12/29/16 08: 00] - Anes Hx Anes Hx: no prior problems - Smoking Hx Smoking Status: Never smoked ANE Labs/Vital Signs - Labs Result Diagrams: 03/15/17 11:11 03/15/17 11:11 - Vital Signs Height: 191 cm Weight: 136.1 kg ANE Physical Exam - Airway Mallampati Score: Class 2 Mouth exam: normal dental/mouth exam - Pulmonary Pulmonary: no respiratory distress, no rales or rhonchi, clear to auscultation - Cardiovascular Cardiovascular: no murmur, rub, or gallop - ASA Status ASA Status: III ANE Anesthesia Plan Anesthesia Plan: general endotracheal anesthesia
[2017-03-15] MEDS ORDERED: PROPOFOL/EMULSION 500 MG/50 ML BOTTLE IV ONE ×4 (12:34→14:19)
[2017-03-15] MEDS ORDERED: ONDANSETRON 4 MG/2 ML VIAL ONE (12:35)
[2017-03-15] MEDS ORDERED: ROCURONIUM 100 MG/10 ML VIAL ONE ×2 (12:35→14:02)
[2017-03-15] MEDS ORDERED: DEXAMETHASONE 4 MG/ML VIAL ONE (12:35)
[2017-03-15] MEDS ORDERED: PHENYLEPHRINE HCL 100 MCG/ML SYR ONE (13:04)
[2017-03-15] MEDS ORDERED: HEPARIN/DEXTROSE 25,000 UNIT/500 ML BAG ONE (13:11)
[2017-03-15] MEDS ORDERED: IOPAMIDOL (ISOVUE-300) 100 ML BTL ONE ×2 (13:22→14:08)
[2017-03-15] MEDS ORDERED: PROTAMINE SULFATE 50 MG/5 ML VIAL IVP ONE (14:50)
[2017-03-15] MEDS ORDERED: NITROGLYCERIN 1,500 MCG/15 ML VIAL MISC ONE (14:52)
[2017-03-15] MEDS ORDERED: PROPOFOL 200 MG/20 ML VIAL ONE ×4 (14:57→15:42)
[2017-03-15] MEDS ORDERED: SUGAMMADEX SODIUM 200 MG/2 ML VIAL IVP ONE (16:03)
[2017-03-15] MEDS ORDERED: OXYCODONE/APAP 5/325 TAB PO PRN (16:19)
[2017-03-15] MEDS ORDERED: ACETAMINOPHEN 325 MG TAB PO PRN (16:19)
[2017-03-15] MEDS ORDERED: ONDANSETRON 4 MG/2 ML VIAL IVP PRN ×2 (16:19→16:30)
[2017-03-15] MEDS ORDERED: ATROPINE SULFATE 1 MG/10 ML SYR ONE (16:29)
[2017-03-15] MEDS ORDERED: fentaNYL 100 MCG/2 ML INJ IVP PRN (16:30)
[2017-03-15] MEDS ORDERED: DIAZEPAM 10 MG/2 ML SYR IVP PRN (16:30)
[2017-03-15] MEDS ORDERED: ENALAPRILAT DIHYDRATE 1.25 MG/ML VIAL IVP PRN (16:30)
[2017-03-15] MEDS ORDERED: NALOXONE HCL 0.4 MG/ML INJ IVP PRN (16:30)
[2017-03-15] MEDS ORDERED: ALBUTEROL 3 ML DEYVIAL IH PRN (16:30)
[2017-03-15] MEDS ORDERED: HYDROCODONE/APAP 5/325 TAB PO PRN (16:30)
--- NOTE | 2017-03-15 16:33 | POSTANESTH ---
Post Anesthetic Evaluation Cardiovascular Status: Similar to Pre-Op Cond Respiratory Status: Similar to Pre-op Cond. Level of Consciousness/Mental Status: Can Participate in Eval, Mildly Sleepy, Arousable Pain Control: Adequate, Prn Tx Ordered Nausea/Vomiting Control: Adequate, Prn Tx Ordered Complications Possibly Related to Anesthesia: None Noted
--- NOTE | 2017-03-15 16:56 | CPEKG ---
Heart Rate: 85 RR Interval: 706 P-R Interval: 232 QRSD Interval: 100 QT Interval: 396 QTC Interval: 471 P [place]: 63 QRS [place]: 27 T Wave [place]: 61 EKG Severity - ABNORMAL ECG - EKG Impression: SINUS RHYTHM EKG Impression: VENTRICULAR BIGEMINY EKG Impression: FIRST DEGREE AV BLOCK EKG Impression: LOW VOLTAGE IN FRONTAL LEADS Electronically Signed By: Fatmata Kim 15-Mar-2017 18:38:58
--- NOTE | 2017-03-15 16:57 | EPPROC ---
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 The right clavicular region, right groin, and left groin area were prepped and draped in the usual sterile manner. Appropriate non-invasive blood pressure, pulse oximetry and end-tidal CO2 monitoring was established. Anesthesiologist Dr. Des Bella administered propofol sedation. All catheters were placed percutaneously using the modified Seldinger technique , and advanced into position under fluoroscopic guidance. One #7 Bermudian deflectable octapolar electrode catheter was advanced to the His-bundle position via the left femoral vein (2mm spacing; except the proximal ring which was 25cm from the tip used for unipolar recordings). One #7 Bermudian deflectable catheter with 10 pairs of electrodes was placed via the right femoral vein into the distal coronary sinus AIV junction. One #7 [place]udian catheter with 10 electrodes (multi electrode 3D mapping catheter) was advanced through the right femoral vein to the right ventricular outflow tract. One #4 [place]ian sheath was placed into the right femoral artery and was used for continuous arterial blood pressure monitoring and intermittent arterial blood gas determination. This was later changed to a 8 Fr sheath for retrograde aortic access. Heparin was administered to keep ACT > 250 seconds. Programmed stimulation was performed from the right atrium, right ventricle and CS (left atrium). Parahisian pacing demonstrated all retrograde conduction over the AV node. The patient arrived to the electrophysiology laboratory in normal sinus rhythm with frequent PVC. PVC morphology LBBB inferior axis with QRS transition between V2 and V3. PVC frequency increased with phenylephrine bolus. Earliest activation was noted at GCV-AIV junction on diagnostic catheter, 45 ms before QRS. A 4 mm Navistar ablation catheter with a magnetic sensor for the Carto 3D electroanatomic mapping system and Pentaray catheter was used for mapping. Mapping (during PVC) of the right ventricular outflow tract, left ventricular outflow tract, sinuses of Valsalva and anterior interventricular vein identified earliest ventricular activation at GCV-AIV junction. Local Ventricular activation at the GCV-AIV junction began 45 ms before the onset of the QRS complex with sharp negative deflection in the unipolar electrode. 6 mm cryo catheter was placed at GCV-AIV junction. Placement of cryo catheter was difficult due to CS spasm, we were able to advance the catheter into distal CS after administration of 400 mcg of IV NTG given through SL2 sheath into the CS. Cryoapplications at GCV-AIV junction suppressed PVC for 15 minutes but there was recurrence. D curve and then F curve 4 mm RF catheters were placed into the LV and ablation performed at the basal anterior LV, local activation began 25 ms before QRS. There was PVC suppression for 4-5 minutes after RF applications but PVC recurred. At this point, procedure was terminated. The catheters were removed. Protamine was administered. The patient was transferred to the cardiovascular holding area in stable condition. Vascular access sheaths were removed in the holding area. There were no apparent complications. CONCLUSIONS: 1. Premature ventricular beats originating from outflow tract area. 2. Cryo ablation at the great cardiac vein-anterior interventricular vein junction and RF ablation at the basal anterior LV with suppression of PVC post ablation but early recurrence. 3. Unsuccessful catheter mediated ablation attempt of the premature ventricular beats. 4. No apparent complications. Patient Problems: Problems Problem Status Onset Frequent PVCs Acute Acute appendicitis Acute
[2017-03-15 17:12] LABS: ANION GAP 13 mEq/L (8-16); CALCIUM 8.9 mg/dL (8.5-10.4); CARBON DIOXIDE 22 mEq/l (22-31); CHLORIDE 108 mEq/L (97-110); CREATININE 0.8 mg/dL (0.7-1.3); GLOMERULAR FILTRATION RATE > 60; GLUCOSE 97 mg/dL (70-100); POTASSIUM 4.5 mEq/L (3.5-5.2); SODIUM 143 mEq/L (134-144)
[2017-03-15] MEDS ORDERED: LATANOPROST 0.005% 2.5 ML OPHT DROPS EACHEYE SCH (21:00)
[2017-03-15] MEDS: Brinzolamide/Brimonidine Tart [Simbrinza 1%-0.2% Eye Drops] 1 DROP EACHEYE SCH (22:02)
[2017-03-16 04:35] VITALS: BP 114/63; PULSE 50
[2017-03-16 05:22] LABS: % IMMATURE GRANULYOCYTES 0.5 % (0.0-1.1); ABSOLUTE IMMATURE GRANULOCYTES 0.04 10^3/uL (0.00-0.10); ADD DIFF? NO; ADD MORPH? NO; ADD SCAN? NO; ATYPICAL LYMPHOCYTE FLAG 0 (0-99); FRAGMENT RBC FLAG 0 (0-99); HEMATOCRIT 46.3 % (40.0-51.0); HEMOGLOBIN 15.9 g/dL (13.7-17.5); LEFT SHIFT FLG 0 (0-99); LIPEMIA HEMOLYSIS FLAG 90 (0-99); MEAN CELL HEMOGLOBIN 31.7 pg (27.9-34.1); MEAN CELL HEMOGLOBIN CONCENTR. 34.3 g/dL (32.4-36.7); MEAN CELL VOLUME 92.2 fL (81.5-99.8); MEAN PLATELET VOLUME 11.2 fL (8.7-11.7); PLATELET CLUMPS FLAG 0 (0-99); PLATELET COUNT 131 10^3/uL (150-400); RED BLOOD CELL COUNT 5.02 10^6/uL (4.40-6.38); RED CELL DISTRIBUTION WIDTH 12.7 % (11.5-15.2)
[2017-03-16 05:25] LABS: INR 1.13 (0.83-1.16); PROTIME(PATIENT) 14.7 SEC (12.0-15.0)
[2017-03-16 05:29] LABS: ANION GAP 11 mEq/L (8-16); CALCIUM 9.2 mg/dL (8.5-10.4); CARBON DIOXIDE 23 mEq/l (22-31); CHLORIDE 108 mEq/L (97-110); CREATININE 0.8 mg/dL (0.7-1.3); GLOMERULAR FILTRATION RATE > 60; GLUCOSE 98 mg/dL (70-100); POTASSIUM 4.9 mEq/L (3.5-5.2); SODIUM 142 mEq/L (134-144)
[2017-03-16 05:38] LABS: CREATINE KINASE-MB FRACTION 2.97 ng/mL (0.00-3.19); TROPONIN I 0.613 ng/mL (0.000-0.034)
[2017-03-16 07:22] VITALS: RESP 16; TEMP 97.9; O2SAT 92
[2017-03-16] MEDS: Brinzolamide/Brimonidine Tart [Simbrinza 1%-0.2% Eye Drops] 1 DROP EACHEYE SCH (08:29)
--- NOTE | 2017-03-16 08:53 | CPEKG ---
Heart Rate: 52 RR Interval: 1154 P-R Interval: 276 QRSD Interval: 98 QT Interval: 464 QTC Interval: 432 P [place]: 68 QRS [place]: 55 T Wave [place]: 58 EKG Severity - ABNORMAL ECG - EKG Impression: SINUS RHYTHM EKG Impression: ATRIAL PREMATURE COMPLEX EKG Impression: FIRST DEGREE AV BLOCK Electronically Signed By: Gorge Anderson 16-Mar-2017 11:14:18
[2017-03-16] MEDS ORDERED: ASPIRIN 81 MG CHEWABLE TAB PO SCH (09:00)
[2017-03-16] MEDS ORDERED: MONTELUKAST SODIUM 10 MG TAB PO SCH (09:00)
[2017-03-16] MEDS ORDERED: LISINOPRIL 10 MG TAB PO SCH (09:00)
--- NOTE | 2017-03-16 11:14 | ASDISCHSUM ---
Discharge Information Plan Status:Home with No Needs Medically Cleared to Leave:03/15/2017 Discharge Date:03/16/2017 10:34 AM CM D/C Disposition:Home, Routine, Self-Care ADT D/C Disposition:Home, Routine, Self-Care Projected Discharge Date:03/16/2017 10:34 AM Transportation at D/C:Family Discharge Delay Reason: Follow-Up Date:03/16/2017 10:34 AM Discharge Slot: Final Diagnosis: Placement Information Patient Contact Information Contact Name:PASQUALE Relationship:Adrien Address: Work Phone: Jodi:JACINDA Alternate Phone: [facility]/[place] Code:[place] Email: Financial Information Financial Class: Primary Plan Desc:MEDICARE OUTPATIENT Primary Plan Number:[id number] Secondary Plan Desc:[employer]/MDR SUPPLEMENT Secondary Plan Number:[id number] Assessment Information Case Management Discharge Plan Note Case Management Discharge Discharge Order Complete? Answers: Yes Patient to Obtain Answers: Independently Medications Transportation Arranged Answers: Family/Friends Discharge Comments Notes: There are no case management d/c needs d/t pt employment status, marital status, family support and activity levels prior to admission. D/C home independent with family support. Family to transport. Date Signed: 03/16/2017 10:13 AM Electronically Signed By:Caitie Foster RN LACE LACE Length of stay for Answers: Less than 1 day current admission Acuity / Level of Care Answers: No. Emergency dept visits in Answers: 1 last 6 months Score: 1 Date Signed: 03/16/2017 10:15 AM Electronically Signed By:Caitie Foster RN Intervention Information Intervention Type:*SCOTT-Signed Date of Service:03/16/2017 09:05 AM Patient Type:Observation Staff Member:Jess Martínez Hours: Discipline: Severity: Comment:
--- NOTE | 2017-03-16 11:21 | ECHO ---
[email or web address] [address] [address] Main: [phone] Fax: Transthoracic Echocardiogram Name: SRAVAN VILLA MR#: [id number] Study Date: 03/16/2017 Study Time: 09:12 AM Date of : 1945 Age: 71 year(s) Height: 190.5 cm (75 in.) Weight: 136.08 kg (300 lb.) BSA: 2.61 m2 Gender: Male Examination: Echo Indication: Post Ablation Image Quality: Contrast: Requested by: Gorge Anderson BP: 114 mmHg/65 mmHg Heart Rate: Rhythm: Bigeminy Indication: Post Ablation Procedure Staff Lining Caser: Lamont Jenkins Reading Physician: Gorge Anderson Requesting Provider: Conclusions: Mild concentric LV hypertrophy. Normal global systolic LV function. The aortic valve is normal in appearance and function. There is no aortic valve regurgitation. No pericardial effusion. Measurements: Chambers Valvular Assessment AV/MV Valvular Assessment TV/PV Normal Normal Normal Name Value Range Name Value Range Name Value Range Ao Liliya (MM): 3.1 cm (2.2 cm-3.7 AV Vmax: 1.22 m/s (1 m/s-1.7 PV Vmax: 0.76 m/s (0.6 m/s-0.9 cm) m/s) m/s) IVSd (2D): 1.2 cm (0.6 cm-1.1 AV maxP mmHg ( - ) PV PGmax: 2 mmHg ( - ) cm) LVOT Vmax: 0.98 m/s (0.7 m/s-1.1 LVDd (2D): 5.1 cm (4.2 cm-5.9 m/s) cm) MV E Vmax: 0.88 m/s ( - ) LVDs (2D): 3.4 cm (2.1 cm-4 MV A Vmax: 0.40 m/s ( - ) cm) MV E/A: 2.20 ( - ) LVPWd (2D): 1.2 cm (0.6 cm-1 cm) LVEF (2D): 62 (>=54 %) Continued Measurements: Chambers Name Value LADs Lon.9 cm LA Area: 22.1 cm2 LA Volume: 65 ml LA Volume Index: 24.9 ml/m2 Patient: SRAVAN VILLA Study Date: 03/16/2017 Page 1 of 2 09:12 AM Findings: Left Ventricle: Normal size left ventricle. Mild concentric LV hypertrophy. Normal global systolic LV function. EF is 62 %. No regional wall motion abnormality. Normal diastolic LV function. Right Ventricle: Normal size right ventricle. Normal RV function. Left Atrium: The left atrium is normal in size. Right Atrium: The right atrium is normal in size. Mitral Valve: The mitral valve is normal in appearance and function. Trivial mitral valve regurgitation. Aortic Valve: The aortic valve is tri-leaflet. The aortic valve is normal in appearance and function. There is no aortic valve regurgitation. Tricuspid Valve: The tricuspid valve is normal in appearance and function. Pulmonic Valve: The pulmonic valve is normal in appearance and function. Aorta: The aorta is normal. Pericardium: No pericardial effusion. (No Signature Object) Patient: SRAVAN VILLA Study Date: 03/16/2017 Page 2 of 2 09:12 AM [id number]
[2017-03-16] MEDS ORDERED: LATANOPROST 0.005% 2.5 ML OPHT DROPS EACHEYE SCH (21:00)
--- NOTE | 2017-03-17 03:44 | GDS ---
[f rep st] DISCHARGE SUMMARY DISCHARGE DIAGNOSES: 1. Premature ventricular contractions. 2. Status post unsuccessful premature ventricular contractions ablation. 3. Hypertension. BRIEF HISTORY: This is a 71-year-old man with a history of hypertension and 28,000 PVCs in 24 hours. These are of outflow tract origin. He has been symptomatic with fatigue, palpitations and exertion al dyspnea, despite verapamil use. He elected to try for an ablation. HOSPITAL COURSE: Dr. Anderson performed EP study. He did cryoballoon ablation at the great cardiac vein anterior interventricular vein junction and RF ablation at the basal anterior LV with suppression of PVCs; however, early recurrence. Unsuccessful ablation of PVCs. Overnight, the patient reports feel ing well and actually did not feel PVCs, as he usually does at night. Telemetry did demonstrate sinu s rhythm with frequent PVCs up to 20%. He denies any chest pain, pressure, tightness, or shortness o f breath. He denies any pain at his groin sites. TESTING DONE: Echocardiogram demonstrates mild concentric LVH with ejection fraction of 62%, and no wall motion abnormalities. No pericardial effusion. A 12-lead EKG demonstrates sinus rhythm with PA Cs and no EKG changes. LAB WORK: Sodium is 142, potassium 4.9, chloride 108, bicarb 23, BUN 24, creatinine 0.8, glucose 98. CK 35, CK-MB fraction 2.97, troponin is 0.613. WBC is 7.68, hemoglobin 15.9, hematocrit 46.3, and platelets 131. PHYSICAL EXAM: VITAL SIGNS: Blood pressure is 114/63, pulse is 50, respirations 16, temperature 36. 6, O2 saturation 92% on room air. GENERAL: He is alert and oriented, obese man sitting up in bed, i n no acute distress. CARDIAC: Regular rate and rhythm without murmur, rub, or gallop. LUNGS: Morena r to auscultation. ABDOMEN: Soft. No tenderness. Groin sites are without bleeding or hematoma. E XTREMITIES: Warm. No discoloration. Bilateral +1 pedal pulses. DISCHARGE INSTRUCTIONS: Reviewed post ablation activity restrictions verbally with patient and he wa s given written instructions. DISCHARGE MEDICATIONS: Please see discharge medication reconciliation. Of note, he will continue ve rapamil 240 mg. He will take 81 mg of aspirin daily for 6 weeks post ablation. FOLLOWUP: He will call [facility] to schedule a 24-hour Holter monitor in about 3 weeks. He has a followup appointment with Dr. Anderson on April 14 at 9:45. /[id number]/MODL
== END 2017-03-16 10:34 | disposition home or self-care (01) ==
LOC: FCATH 10:41 → F2W 16:20
PROVIDERS: ADMIT Internal Medicine Cardiovascular Disease; ATTEND Internal Medicine Cardiovascular Disease
DX: I49.3 Ventricular premature depolarization (principal); I10 Essential (primary) hypertension; I25.10 Atherosclerotic heart disease of native coronary artery without angina pectoris
CPT/HCPCS: 93005; 93306; 93621; 93623; 93654; C1731; C1732; C1733; C1760; C1893; J1100; J1644; J2370; J2405; J2704; J2720; Q9967; J0461

== ENCOUNTER → 2017-04-05 | Outpatient (CLI) | payer OTHER, MEDICARE | LOC: BHFA 11:00 | PROVIDERS: ATTEND Internal Medicine Cardiovascular Disease | DX: I49.3 Ventricular premature depolarization (principal) ==

== ENCOUNTER → 2017-09-14 | Outpatient (CLI) | payer OTHER, MEDICARE | LOC: BHFA 09:00 | PROVIDERS: ATTEND Internal Medicine Cardiovascular Disease | DX: I49.3 Ventricular premature depolarization (principal) ==

== ENCOUNTER → 2018-01-06 | Outpatient (CLI) | payer OTHER, MEDICARE | LOC: BHFA 14:45 | PROVIDERS: ATTEND Internal Medicine Cardiovascular Disease | DX: I49.3 Ventricular premature depolarization (principal) ==